=== PATIENT | female | born 2000 | race Hispanic/Latino ===

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

== ENCOUNTER 2022-12-17 23:05 | Observation (INO) | payer MEDICAID ==
[~2022-12-17] VITALS: Ht 157.5 cm; Wt 73.9 kg
[~2022-12-17 23:05] MED LIST changes: +CEPH500B PO
[2022-12-17 23:07] VITALS: BP 137/77; PULSE 110; RESP 18; O2SAT 98
[2022-12-17 23:44] LABS: APPEARANCE,URINE CLOUDY (CLEAR); BILIRUBIN,URINE NEGATIVE (NEGATIVE); COLOR,URINE LIGHT-YELLOW (YELLOW); GLUCOSE, URINE (UA) NEGATIVE (NEGATIVE); KETONES,URINE NEGATIVE (NEGATIVE); LEUKOCYTE ESTERASE ,URINE 500 Leu/uL (NEGATIVE); NITRATE,URINE NEGATIVE (NEGATIVE); OCCULT BLOOD,URINE SMALL (NEGATIVE); PH,URINE 6.5 (5.0-8.0); PROTEIN,URINE NEGATIVE (NEGATIVE); UROBILINOGEN,URINE 0.2 mg/dL (0.2-1.0)
[2022-12-17 23:48] LABS: ADD UA MICROSCOPIC YES
[2022-12-17 23:53] LABS: BACTERIA,URINE RARE /HPF (None Seen); SQUAMOUS EPITHELIAL CELL,UR MANY /HPF (0-2); WBC,URINE 51-100 /HPF (0-1)
[2022-12-18 15:55] LABS: AMPHET/METH SCREEN,URINE NEGATIVE (NEGATIVE); BARBITURATE SCREEN, URINE NEGATIVE (NEGATIVE); BENZODIAZEPINES SCREEN,URINE NEGATIVE (NEGATIVE); CANNABINOID SCREEN,URINE NEGATIVE (NEGATIVE); COCAINE SCREEN,URINE NEGATIVE (NEGATIVE); OPIATE SCREEN,URINE NEGATIVE (NEGATIVE); PHENCYCLIDINE SCREEN,URINE NEGATIVE (NEGATIVE)
== END 2022-12-18 00:25 | disposition home or self-care (01) ==
LOC: EDH 23:05 → LDH 23:06
PROVIDERS: ADMIT Obstetrics & Gynecology; ATTEND Obstetrics & Gynecology
DX: O26.893 Other specified pregnancy related conditions, third trimester (principal); R10.13 Epigastric pain; Z3A.32 32 weeks gestation of pregnancy; Z79.899 Other long term (current) drug therapy
CPT/HCPCS: 80305; 87088; 81001; 59025; G0379; G0378

== ENCOUNTER 2023-02-13 20:59 | Inpatient (IN) | payer MEDICAID ==
[~2023-02-13] VITALS: Ht 157.5 cm; Wt 79.4 kg
[2023-02-13] MEDS ORDERED: NALOXONE HCL 0.4 MG/1 ML ML IV PRN (21:30)
[2023-02-13] MEDS ORDERED: OXYTOCIN-LR 30 UNITS/500ML 500 ML IV SCH (21:30)
[2023-02-13] MEDS ORDERED: LACTATED RINGERS 500 ML 500 ML IV PRN (21:30)
[2023-02-13] MEDS ORDERED: EPHEDRINE SULFATE 50 MG/ML AMPULE IVP PRN (21:30)
[2023-02-13] MEDS ORDERED: PROMETHAZINE HCL 25 MG/ML 1ML AMPULE IM PRN (21:30)
[2023-02-13] MEDS ORDERED: ROPIVACAINE 0.2% 100ML VIAL 100 ML EP SCH (21:30)
[2023-02-13] MEDS ORDERED: MEPERIDINE-PF 50 MG/ML SYG IVP PRN (21:30)
[2023-02-13 21:53] LABS: ADD UA MICROSCOPIC YES; APPEARANCE,URINE CLOUDY (CLEAR); BILIRUBIN,URINE NEGATIVE (NEGATIVE); COLOR,URINE LIGHT-YELLOW (YELLOW); GLUCOSE, URINE (UA) NEGATIVE (NEGATIVE); KETONES,URINE NEGATIVE (NEGATIVE); LEUKOCYTE ESTERASE ,URINE 500 Leu/uL (NEGATIVE); NITRATE,URINE NEGATIVE (NEGATIVE); OCCULT BLOOD,URINE SMALL (NEGATIVE); PH,URINE 6.5 (5.0-8.0); PROTEIN,URINE 30 mg/dL (NEGATIVE); UROBILINOGEN,URINE 0.2 mg/dL (0.2-1.0)
[2023-02-13 21:55] LABS: BACTERIA,URINE MOD /HPF (None Seen); MUCUS,URINE RARE LPF (None Seen); RBC,URINE 26-50 /HPF (0-1); SQUAMOUS EPITHELIAL CELL,UR MOD /HPF (0-2); WBC,URINE >100 /HPF (0-1)
[2023-02-13] MEDS ORDERED: AMPICILLIN 2GM+NS 100ML 100 ML IV SCH (22:00)
[2023-02-13] MEDS: LACTATED RINGERS 1000ML 1,000 ML IV PRN (22:01)
[2023-02-13 23:40] LABS: HEMATOCRIT 34.1 % (36-48); MEAN CORPUSCULAR HEMOGLOBIN 21.6 pg (27.0-33.0); MEAN CORPUSCULAR HGB CONC 30.8 g/dL (32.0-36.0); MEAN CORPUSCULAR VOLUME 70.2 fL (80-100); NUCLEATED RED BLOOD CELLS 0.2 % (0.0-0.19); PLATELET COUNT (AUTO) 376 K/uL (130-400); RED BLOOD CELL COUNT(AUTO) 4.86 MIL/uL (4.00-5.50); RED CELL DISTRIBUTION WIDTH 18.3 % (11.0-15.5); WHITE BLOOD COUNT (AUTO) 12.5 K/uL (4.8-10.8)
[2023-02-14 01:07] LABS: AMPHET/METH SCREEN,URINE NEGATIVE (NEGATIVE); BARBITURATE SCREEN, URINE NEGATIVE (NEGATIVE); BENZODIAZEPINES SCREEN,URINE NEGATIVE (NEGATIVE); CANNABINOID SCREEN,URINE NEGATIVE (NEGATIVE); COCAINE SCREEN,URINE NEGATIVE (NEGATIVE); OPIATE SCREEN,URINE NEGATIVE (NEGATIVE); PHENCYCLIDINE SCREEN,URINE NEGATIVE (NEGATIVE)
[2023-02-14] MEDS: AMPICILLIN 1GM+NS 50ML 50 ML IV SCH ×2 (02:41→06:13)
[2023-02-14] MEDS ORDERED: OXYTOCIN-LR 30 UNITS/500ML 500 ML IV SCH ×3 (04:00→10:00)
[2023-02-14] MEDS: LACTATED RINGERS 1000ML 1,000 ML IV PRN (05:06)
[2023-02-14 07:47] LABS: RAPID PLASMA REAGIN NONREACTIVE (NONREACTIVE)
[2023-02-14] MEDS ORDERED: LIDOCAINE HCL 1% 20 ML VIAL ONE (08:12)
[2023-02-14] MEDS ORDERED: MISOPROSTOL 200 MCG TABLET ONE (08:13)
[2023-02-14] MEDS ORDERED: LANOLIN 30GM OINTMENT TP PRN (10:00)
[2023-02-14] MEDS ORDERED: BENZOCAINE/LANOLIN/ALOE VERA 60 ML AEROSOL TP PRN (10:00)
[2023-02-14] MEDS ORDERED: ACETAMINOPHEN WITH CODEINE 1 TAB TAB PO PRN (10:00)
[2023-02-14] MEDS ORDERED: WITCH HAZEL 1 PAD TP PRN (10:00)
[2023-02-14] MEDS ORDERED: DIPH,PERTUSS(ACELL),TET VAC/PF 0.5 ML VIAL IM PRN (10:00)
[2023-02-14] MEDS ORDERED: MEASLES/MUMPS/RUBELLA VACCINE, LIVE 0.5 ML/VIAL SQ PRN (10:00)
[2023-02-14] MEDS: IBUPROFEN 600 MG TABLET PO PRN ×2 (11:46→20:15)
[2023-02-14 15:00] VITALS: BP 120/73; PULSE 87; RESP 18
[2023-02-14] MEDS ORDERED: FLU VACC QS2023-24(6MOS UP)/PF 60 MCG/0.5 ML IM ONE (18:00)
[2023-02-14 20:00] VITALS: BP 119/59; PULSE 115; RESP 20
[2023-02-14] MEDS: DOCUSATE SODIUM 100 MG CAP PO SCH (21:09)
[2023-02-14] MEDS: ACETAMINOPHEN 325 MG TAB PO PRN (21:16)
[2023-02-14 23:57] VITALS: BP 130/85; PULSE 115; RESP 20
[2023-02-15 00:53] VITALS: TEMP 99
[2023-02-15] MEDS: ACETAMINOPHEN 325 MG TAB PO PRN ×2 (00:53→09:47)
[2023-02-15 04:30] VITALS: BP 122/58; PULSE 105; RESP 20
[2023-02-15 06:51] LABS: HEMATOCRIT 24.9 % (36-48); MEAN CORPUSCULAR HEMOGLOBIN 21.3 pg (27.0-33.0); MEAN CORPUSCULAR HGB CONC 30.1 g/dL (32.0-36.0); MEAN CORPUSCULAR VOLUME 70.7 fL (80-100); RED BLOOD CELL COUNT(AUTO) 3.52 MIL/uL (4.00-5.50); RED CELL DISTRIBUTION WIDTH 18.3 % (11.0-15.5); WHITE BLOOD COUNT (AUTO) 15.2 K/uL (4.8-10.8)
[2023-02-15 08:00] VITALS: BP 140/84; PULSE 96; RESP 18
[2023-02-15] MEDS: DOCUSATE SODIUM 100 MG CAP PO SCH (09:43)
[2023-02-15 11:13] VITALS: BP 144/88; PULSE 102; RESP 19
== END 2023-02-15 14:25 | disposition home or self-care (01) | DRG 560 ==
LOC: LDH 20:59 → WSH 02-14 15:11
PROVIDERS: ADMIT Obstetrics & Gynecology; ATTEND Obstetrics & Gynecology
PROC: 10E0XZZ Delivery of Products of Conception, External Approach (ICD-10-PCS; principal; 2023-02-14)
PROC: 3E0234Z Introduction of Serum, Toxoid and Vaccine into Muscle, Percutaneous Approach (ICD-10-PCS; 2023-02-14)
PROC: 3E0134Z Introduction of Serum, Toxoid and Vaccine into Subcutaneous Tissue, Percutaneous Approach (ICD-10-PCS; 2023-02-14)
DX: O99.824 Streptococcus B carrier state complicating childbirth (principal); Z37.0 Single live birth; O48.0 Post-term pregnancy; Z3A.40 40 weeks gestation of pregnancy; Z23 Encounter for immunization
CPT/HCPCS: 36415; 80305; 81001; 85027; 86592; 86701; 86850; 86900; 86901; 87088; 87340; 87390; G0378; J0290; J2175; J2550; J7120